=== PATIENT | male | born 1950 | race Hispanic/Latino ===

== ENCOUNTER → 2019-01-02 | Outpatient (CLI) | payer OTHER ==
--- NOTE | 2019-01-02 13:18 | Diagnostic Imaging Report ---
TECHNIQUE: Magnetic resonance imaging of the LEFT Knee was performed WITHOUT intravenous contrast. COMPARISON: None. FINDINGS: Joint effusion: Small suprapatellar joint effusion. Hoffa's fat pad is unremarkable. Menisci: Mild intrasubstance degeneration of the lateral meniscus. No meniscal tear. Tendons and Ligaments: The ACL and the PCL are intact. The collateral ligaments are unremarkable. The iliotibial band is unremarkable. Small amount of infrapatellar subcutaneous soft tissue edema. Patellar tendon enthesopathy and mild patellar tendinosis with mild underlying marrow edema at the tibial insertion. Articular Cartilage and Bone: Patellofemoral compartment predominant degenerative changes with multifocal areas of focal thickness cartilage fissuring most notably at the trochlear groove and at the lateral patellar facet with underlying marrow edema. IMPRESSION: No acute osseous or ligamentous injury. Patellar tendon enthesopathy and mild patellar tendinosis. Small suprapatellar joint effusion. Patellofemoral compartment predominant degenerative changes with areas of full thickness cartilage fissuring. Signed by: Geraldine Hein MD on 01/02/2019 1:14 PM
== END ==
LOC: MRI 11:31
PROVIDERS: ATTEND Family Medicine
DX: S80.02XD Contusion of left knee, subsequent encounter (principal)